=== PATIENT | male | born 1940 | race Caucasian/White ===

== ENCOUNTER → 2023-05-06 11:37 | Outpatient (REF) | payer MEDICARE, SELFPAY ==
[2023-05-06 12:28] LABS: % Basophils 0.6 % (0-2); % Eosinophils 3.5 % (0-6); % Immature Granulocytes 0.6 % (0-0.5); % Lymphocytes 19.7 % (20.5-51.1); % Monocytes 8.4 % (1.7-9.3); % Neutrophils 67.2 % (42.2-75.2); Absolute Basophils 0.1 10^3/uL (0-0.2); Absolute Eosinophils 0.4 10^3/uL (0-0.7); Absolute Immature Granulocytes 0.1 10^3/uL (0-0.05); Absolute Lymphocytes 2.1 10^3/uL (1.2-3.4); Absolute Monocytes 0.9 10^3/uL (0.1-0.6); Hematocrit 40.3 % (39.0-52.0); Hemoglobin 13.6 g/dL (13.0-18.0); Mean Corp Hgb Conc. 33.7 g/dL (33.0-37.0); Mean Corpuscular Hgb 30.7 pg (27.0-31.0); Mean Platelet Volume 10.4 fL (7.4-10.4); Nucleated Red Blood Cells % 0 % (-); Platelet Count 209 10^3/uL (130-400); Red Blood Cell Count 4.43 10^6/uL (4.70-6.10); Red Cell Dist. Width 14.1 % (11.5-14.5); White Blood Cell Count 10.4 10^3/uL (4.8-10.8)
[2023-05-06 13:02] LABS: ALT (SGPT) 68 U/L (0-50); AST (SGOT) 52 U/L (17-59); Albumin 3.6 g/dl (3.5-5.0); Alkaline Phosphatase 60 U/L (38-126); Blood Urea Nitrogen 15 mg/dl (9-20); Carbon Dioxide 27 mmol/L (22-30); Chloride 103 mmol/L (98-107); Glucose 88 mg/dl (70-99); HDL Cholesterol 39 mg/dl; LDL Cholesterol, Calculated 61 mg/dl; Sodium 140 mmol/L (135-145); Total Bilirubin 0.8 mg/dl (0.2-1.3); Total Cholesterol 112 mg/dl (50-199); Total Protein 6.5 g/dl (6.3-8.2); Triglyceride 62 mg/dl (10-149); Very Low Density Lipoprotein 12 mg/dl (0-30); eGFR > 60.00
[2023-05-06 13:23] LABS: TSH Reflex To Free T4 2.96 uIU/ml (0.47-4.68)
[2023-05-06 14:17] LABS: Glycohemoglobin (HgbA1c) 6.5 % (4.0-5.6)
== END ==
LOC: OLABP 11:37
PROVIDERS: ATTENDING PHYSICIAN Internal Medicine
DX: F03.90 Unspecified dementia, unspecified severity, without behavioral disturbance, psychotic disturbance, mood disturbance, and anxiety (principal); E11.9 Type 2 diabetes mellitus without complications
CPT/HCPCS: 36415; 80053; 80061; 83036; 84443; 85025

== ENCOUNTER → 2023-05-11 19:11 | Outpatient (REF) | payer MEDICARE, SELFPAY ==
[2023-05-11 19:50] LABS: Urine Albumin Negative (Neg - Trace); Urine Bilirubin 1+ (Negative); Urine Character Clear (Clear); Urine Color Yellow; Urine Glucose Negative (Negative); Urine Ketone Negative (Negative); Urine Leukocyte Negative (Negative); Urine Nitrite Negative (Negative); Urine Occult Blood Negative (Negative); Urine Urobilinogen 1+ (Neg - 1+)
== END ==
LOC: OLABP 19:11
PROVIDERS: ATTENDING PHYSICIAN Internal Medicine
DX: F03.90 Unspecified dementia, unspecified severity, without behavioral disturbance, psychotic disturbance, mood disturbance, and anxiety (principal); E11.9 Type 2 diabetes mellitus without complications; R50.9 Fever, unspecified
CPT/HCPCS: 81003; 87086

== ENCOUNTER → 2023-06-03 10:06 | Outpatient (REF) | payer MEDICARE, SELFPAY ==
[2023-06-03 11:40] LABS: ALT (SGPT) 50 U/L (0-50); AST (SGOT) 50 U/L (17-59); Albumin 4.3 g/dl (3.5-5.0); Alkaline Phosphatase 59 U/L (38-126); Blood Urea Nitrogen 20 mg/dl (9-20); Calcium 9.4 mg/dl (8.4-10.2); Carbon Dioxide 26 mmol/L (22-30); Chloride 100 mmol/L (98-107); Glucose 98 mg/dl (70-99); Sodium 138 mmol/L (135-145); Total Bilirubin 1.4 mg/dl (0.2-1.3); Total Protein 7.3 g/dl (6.3-8.2); eGFR > 60.00
== END ==
LOC: OLABPG 10:06
PROVIDERS: ATTENDING PHYSICIAN Internal Medicine
DX: F03.90 Unspecified dementia, unspecified severity, without behavioral disturbance, psychotic disturbance, mood disturbance, and anxiety (principal); E11.9 Type 2 diabetes mellitus without complications
CPT/HCPCS: 36415; 80053

== ENCOUNTER → 2023-08-12 10:30 | Outpatient (REF) | payer MEDICARE, SELFPAY ==
[2023-08-12 11:23] LABS: % Basophils 0.4 % (0-2); % Immature Granulocytes 0.6 % (0-0.5); % Lymphocytes 23.2 % (20.5-51.1); % Monocytes 8.1 % (1.7-9.3); % Neutrophils 64.7 % (42.2-75.2); Absolute Basophils 0.1 10^3/uL (0-0.2); Absolute Eosinophils 0.4 10^3/uL (0-0.7); Absolute Immature Granulocytes 0.1 10^3/uL (0-0.05); Absolute Lymphocytes 2.7 10^3/uL (1.2-3.4); Absolute Monocytes 0.9 10^3/uL (0.1-0.6); Absolute Neutrophils 7.5 10^3/uL (1.4-6.5); Hematocrit 41.4 % (39.0-52.0); Hemoglobin 13.8 g/dL (13.0-18.0); Mean Corp Hgb Conc. 33.3 g/dL (33.0-37.0); Mean Corpuscular Hgb 30.9 pg (27.0-31.0); Mean Corpuscular Volume 92.8 fL (80.0-94.0); Mean Platelet Volume 10.2 fL (7.4-10.4); Nucleated Red Blood Cells % 0 % (-); Platelet Count 181 10^3/uL (130-400); Red Blood Cell Count 4.46 10^6/uL (4.70-6.10); Red Cell Dist. Width 13.7 % (11.5-14.5); White Blood Cell Count 11.5 10^3/uL (4.8-10.8)
[2023-08-12 11:50] LABS: ALT (SGPT) 23 U/L (0-50); AST (SGOT) 31 U/L (17-59); Alkaline Phosphatase 80 U/L (38-126); Blood Urea Nitrogen 18 mg/dl (9-20); Calcium 9.4 mg/dl (8.4-10.2); Carbon Dioxide 25 mmol/L (22-30); Chloride 105 mmol/L (98-107); Glucose 87 mg/dl (70-99); Potassium 3.9 mmol/L (3.5-5.1); Sodium 141 mmol/L (135-145); Total Bilirubin 0.7 mg/dl (0.2-1.3); Total Protein 6.7 g/dl (6.3-8.2); eGFR > 60.00
== END ==
LOC: OLABPG 10:30
PROVIDERS: ATTENDING PHYSICIAN Internal Medicine
DX: F03.90 Unspecified dementia, unspecified severity, without behavioral disturbance, psychotic disturbance, mood disturbance, and anxiety (principal); F02.818 Dementia in other diseases classified elsewhere, unspecified severity, with other behavioral disturbance; R74.01 Elevation of levels of liver transaminase levels
CPT/HCPCS: 36415; 80053; 85025

== ENCOUNTER 2023-10-09 09:42 | Emergency (ER) | payer MEDICARE, SELFPAY ==
[2023-10-09 09:46] VITALS: BP 132/98
--- NOTE | 2023-10-09 09:57 | ED.GENMED ---
History of Present Illness
General
Chief Complaint: Fall
Source: patient
Time Seen by Provider: 10/09/23 09:46
History of Present Illness
History of Present Illness:
83-year-old male presents to the emergency room from [facility] after being found on the ground after an unwitnessed fall. Patient initially complained of right knee pain. Now he offers no complaints. Patient does not take any anticoagulants.
Past History
Past History
ED Past Medical History: CAD, GERD, Hypercholesterolemia and Other (Psoriasis, PCVPolycythemia, diabetes)
ED Past Surgical History: Cardiac (Stent)
Social History
Tobacco: Former smoker
Alcohol: None
Drug: None
Personal:
Living: with family
Employment: Retired
Family History
Family History: Other (NA)
Phy Exam
Physical Exam
Physical Exam:
General: Awake, Alert, Oriented X3. No acute distress.
Vitals: unremarkable
Head: No abrasions, contusions or areas to suggest head trauma
Eyes: Pupils equal, EOMI
Throat: Airway intact, no exudates
Neck: Trachea midline
Lungs: Clear and equal b/l
Heart: Regular rate, no murmurs
Abd: Soft, Nontender, No pulsatile mass
Neuro: Cranial nerves intact, muscle strength equal bilaterally
Skin: Warm, dry, no rash
Extremities: pulses equal b/l, no edema. Abrasion right knee. Range of motion appears intact. No significant tenderness to palpation
Course
Orders/Labs/Results
Orders:
Orders
10/09/23 09:54
Knee, Right 4 or More Views [CR Knee- Right 4 Or More View*] Urgent
Comment:
Reason For Exam: pain after a fall
10/09/23 10:04
Shoulder, Right, Trauma [CR Shoulder, Trauma - Right] Urgent
Comment:
Reason For Exam: pain after a fall
Vital Signs
Initial and Last Documented VS:
Initial Vital Signs
Temp Pulse Resp BP Pulse Ox
98.2 F 97 20 132/98 98
10/09/23 09:46 10/09/23 09:46 10/09/23 09:46 10/09/23 09:46 10/09/23 09:46
Last Documented Vital Signs
Temp Pulse Resp BP Pulse Ox
98.2 F 92 16 108/88 99
10/09/23 09:46 10/09/23 12:00 10/09/23 12:00 10/09/23 12:00 10/09/23 12:00
MDM/Problems Addressed
Differential Diagnosis Includes:
Contusion, fracture, sprain
MDM/Problems Addressed:
Patient had unwitnessed fall. There is no evidence for head injury and therefore CT scan of the head not indicated. X-ray showed no fracture of the right knee with the right shoulder. Patient appears to be comfortable and at his baseline mental
status. Stable for discharge back to the facility
*Radiology
Radiology exam reviewed: preliminary read by ED provider (Reviewed patient's shoulder and knee x-rays and see no acute fracture) and radiology read reviewed
*Pulse Oximetry
Patient hypoxic: no
*Critical Care Note
Total Time (30-74mins, 75-104mins- exclusive of procedures): Not Applicable
Data Reviewed
Further Testing Considered But Not Given:
Considered head CT but there is no evidence of trauma to his head at all. Therefore do not think the cost of radiation exposure is justified.
Patient Management
Social determinants of health affecting care: Living situation
ED Attending Note
-
Portions of this chart may have been created with voice recognition software.� Occasional wrong word or��sound alike� substitutions may have occurred due to the inherent limitations of voice recognition software.
Discharge Plan
Departure
Patient Disposition: [facility]
Date of Disposition: 10/09/23
Time of Disposition: 10:44
Condition: Fair
Discharge Problem:
Contusion of knee, Contusion of shoulder, right
Instructions: Contusion (DC)
Prescriptions:
No Action
rosuvastatin 5 MG tablet
5 mg PO HS
metformin 500 MG tablet
500 mg PO BID@0800,1700
acetaminophen 325 mg Tablet
650 mg PO Q6H PRN (Reason: mild pain, fever, headache)
omeprazole 40 mg Capsule,Delayed Release(Dr/Ec)
40 mg PO DAILY
betamethasone dipropionate 0.05 % cream
1 applic TOPICAL DAILY
aspirin 81 mg Tablet,Chewable
81 mg PO DAILY
risperidone [Risperdal] 1 mg Tablet
1 mg PO HS
Referrals:
[facility] [Family Provider] -
Interventions
Interventions:
*Risk Screen - Suicide Last Done: 10/09/23 09:46
*General Assessment Last Done: 10/09/23 09:46
*Neglect/Abuse Screening Last Done: 10/09/23 09:46
*Nursing Disposition Last Done: 10/09/23 12:38
ED-Musculoskeletal Assessment Last Done: 10/09/23 10:15
ED- Neurological Assessment Last Done: 10/09/23 10:15
ED-Skin Assessment Last Done: 10/09/23 10:15
Discharge Date and Time
Discharge Date/Time: 10/09/23 12:39
Print Language: CITIZ[place]
[2023-10-09 10:00] VITALS: BP 127/65
[2023-10-09 11:00] VITALS: BP 128/86
[2023-10-09 12:00] VITALS: BP 108/88
== END 2023-10-09 12:39 ==
LOC: EMR 09:42
PROVIDERS: EMERGENCY PHYSICIAN Emergency Medicine
DX: S40.011A Contusion of right shoulder, initial encounter (principal); S80.01XA Contusion of right knee, initial encounter; W19.XXXA Unspecified fall, initial encounter; Y92.121 Bathroom in nursing home as the place of occurrence of the external cause
CPT/HCPCS: 99284; 73030; 73564

== ENCOUNTER → 2024-03-23 09:25 | Outpatient (REF) | payer MEDICARE, SELFPAY ==
[2024-03-23 11:14] LABS: % Basophils 0.7 % (0-2); % Eosinophils 2.9 % (0-6); % Immature Granulocytes 0.4 % (0-0.5); % Lymphocytes 21.6 % (20.5-51.1); % Monocytes 8.1 % (1.7-9.3); % Neutrophils 66.3 % (42.2-75.2); Absolute Basophils 0.1 10^3/uL (0-0.2); Absolute Eosinophils 0.3 10^3/uL (0-0.7); Absolute Lymphocytes 2.1 10^3/uL (1.2-3.4); Absolute Monocytes 0.8 10^3/uL (0.1-0.6); Absolute Neutrophils 6.5 10^3/uL (1.4-6.5); Hematocrit 42.4 % (39.0-52.0); Hemoglobin 13.9 g/dL (13.0-18.0); Mean Corp Hgb Conc. 32.8 g/dL (33.0-37.0); Mean Corpuscular Hgb 31.2 pg (27.0-31.0); Mean Corpuscular Volume 95.3 fL (80.0-94.0); Nucleated Red Blood Cells % 0 % (-); Platelet Count 208 10^3/uL (130-400); Red Blood Cell Count 4.45 10^6/uL (4.70-6.10); Red Cell Dist. Width 13.4 % (11.5-14.5); White Blood Cell Count 9.7 10^3/uL (4.8-10.8)
[2024-03-23 12:16] LABS: ALT (SGPT) 14 U/L (0-50); AST (SGOT) 25 U/L (17-59); Albumin 4.1 g/dl (3.5-5.0); Alkaline Phosphatase 60 U/L (38-126); Blood Urea Nitrogen 19 mg/dl (9-20); Calcium 9.1 mg/dl (8.4-10.2); Carbon Dioxide 26 mmol/L (22-30); Chloride 102 mmol/L (98-107); Glucose 93 mg/dl (70-99); Potassium 4.1 mmol/L (3.5-5.1); Sodium 136 mmol/L (135-145); Total Bilirubin 0.6 mg/dl (0.2-1.3); Total Protein 6.8 g/dl (6.3-8.2); eGFR > 60.00
== END ==
LOC: OLABPG 09:25
PROVIDERS: ATTENDING PHYSICIAN Nurse Practitioner Acute Care
DX: F02.80 Dementia in other diseases classified elsewhere, unspecified severity, without behavioral disturbance, psychotic disturbance, mood disturbance, and anxiety (principal)
CPT/HCPCS: 36415; 80053; 85025

== ENCOUNTER 2024-08-12 21:26 | Emergency (ER) | payer MEDICARE, SELFPAY ==
[2024-08-12 21:30] VITALS: BP 115/56; BMI 25.0
[2024-08-12 22:00] VITALS: BP 131/70
[2024-08-12 23:00] VITALS: BP 123/60
--- NOTE | 2024-08-13 19:06 | ED.SKININJ ---
HPI-Injury
General
Chief Complaint: Head Injury
Source: patient and family (son)
Exam Limitations: none
Time Seen by Provider: 08/12/24 21:39
Nursing documentation reviewed up to this point in time: agreed with
History of Present Illness-Injury
Is this injury a work related problem?: No
Is pt an associate of [facility]/[place]?: No
Initial Injury comments:
Unwitnessed fall at [place]. According to staff, he walked to the nurses station and they noticed bleeding from left side of head. Sent to ED for eval. History of dementia. Son is at bedside. Patient is able to move all extremities without
dfficulty. Able to bear weight BLE. Laceration to left parietal scalp. No other injuries noted.
Past History
Past History
ED Past Medical History: CAD, GERD, Hypercholesterolemia and Other (Psoriasis, PCVPolycythemia, diabetes)
ED Past Surgical History: Cardiac (Stent)
Social History
Tobacco: Former smoker
Alcohol: None
Drug: None
Personal:
Living: with family
Employment: Retired
Family History
Family History: Other (NA)
Review of Systems
Review of Systems
Allergies reviewed?: Yes
All Other Systems: ROS reviewed and negative except as documented in HPI and ROS
Constitutional: Reports no symptoms
EENT: Reports no symptoms
Respiratory: Reports no symptoms
Cardiac: Reports no symptoms
ABD/GI: Reports no symptoms
: Reports no symptoms
Musculoskeletal: Reports no symptoms
Skin: Reports other (laceration to left parietal scalp)
Neurological: Reports no symptoms
Psychiatric: Reports no symptoms
Skin Exam
Laceration
Left Parietal:
Length in cm: 2
Orientation: horizontal
Type of Laceration: simple
Any active bleeding?: no active bleeding
Normal distal neurovascular exam: Yes
Range of motion: full
Phy Exam
General Physical Exam
General Presentation: well appearing and no apparent distress
General age: appears stated age
General Skin: warm and dry
General Habitus: normal
General Mental: alert
Cardiovascular Exam
Cardiovascular Exam: regular rate/rhythm and no edema
Pulmonary Exam
Pulmonary Exam: no respiratory distress and chest non tender
Gastrointestinal Exam
Gastrointestinal Exam: non tender, soft, no organomegaly, no pulsatile mass, non distended and no cva tenderness
Neurological Exam
Neurological Exam: alert, CN II-XII intact, no motor deficits, no sensory deficits, speech normal and confused (baseline)
Musculoskeletal Exam
Musculoskeletal Exam: full ROM and neuro vasc intact
Skin Exam
Skin Exam: normal color, warm/dry and no rash
Psychiatric Exam
Psychiatric Exam: normal mood/affect
Course
Orders/Labs/Results
Orders:
Orders
08/12/24 22:08
CT Head W/o Iv Contrast Urgent
Comment:
Reason For Exam: fall
Vital Signs
Initial and Last Documented VS:
Initial Vital Signs
Temp Pulse Resp BP Pulse Ox
97.9 F 69 18 115/56 96
08/12/24 21:30 08/12/24 21:30 08/12/24 21:30 08/12/24 21:30 08/12/24 21:30
Last Documented Vital Signs
Temp Pulse Resp BP Pulse Ox
97.9 F 69 18 123/60 95
08/12/24 21:30 08/12/24 21:30 08/12/24 21:30 08/12/24 23:00 08/12/24 23:00
Procedures
Laceration Closure
Left Parietal:
Status of Wound: clean
Description of Wound Edges: sharp
Preparation: cleaned with saline
Anesthesia: 1% Lidocaine
Revision/Debridement: routine- no revision
Wound exploration: explored to base- no FB
Type of Closure: single layer closure
Skin Closure Material: 4-0 prolene
*Radiology
Radiology exam reviewed: radiology read reviewed
*Pulse Oximetry
Patient hypoxic: no
*Critical Care Note
Total Time (30-74mins, 75-104mins- exclusive of procedures): Not Applicable
ED Attending Note
-
Portions of this chart may have been created with voice recognition software.� Occasional wrong word or��sound alike� substitutions may have occurred due to the inherent limitations of voice recognition software.
Discharge Plan
Departure
Patient Disposition: Home (Routine Discharge)
Date of Disposition: 08/13/24
Time of Disposition: 00:04
Patient with high blood pressure during this ER visit?: No
Condition: Good
Covid-19: Not Applicable
Discharge Problem:
Head injury, Laceration of scalp
Instructions: Head Injury in Adults (DC), Laceration Repair With Stitches (DC)
Prescriptions:
No Action
rosuvastatin 5 MG tablet
5 mg PO HS
metformin 500 MG tablet
500 mg PO BID@0800,1700
acetaminophen 325 mg Tablet
650 mg PO Q6H PRN (Reason: mild pain, fever, headache)
omeprazole 40 mg Capsule,Delayed Release(Dr/Ec)
40 mg PO DAILY
betamethasone dipropionate 0.05 % cream
1 applic TOPICAL DAILY
aspirin 81 mg Tablet,Chewable
81 mg PO DAILY
risperidone [Risperdal] 1 mg Tablet
1 mg PO HS
Referrals:
Adebayo Son Sr., MD [Family Provider] - (Sutures can be removed in 7-10 days)
Interventions
Interventions:
*Risk Screen - Suicide Last Done: 08/12/24 21:30
*General Assessment Last Done: 08/12/24 21:30
*Neglect/Abuse Screening Last Done: 08/12/24 21:30
*ED- Fall Risk Assessment Last Done: 08/12/24 21:30
*ED COVID-19 Vaccine History Last Done: 08/12/24 21:30
*Nursing Disposition Last Done: 08/13/24 00:12
ED- Neurological Assessment Last Done: 08/12/24 22:08
ED-Skin Assessment Last Done: 08/12/24 22:08
Discharge Date and Time
Discharge Date/Time: 08/13/24 00:45
Print Language: [place]EN[place]
== END 2024-08-13 00:45 | disposition home or self-care (01) ==
LOC: EMR 21:26
PROVIDERS: EMERGENCY PHYSICIAN Student in an Organized Health Care Education/Training Program; FAMILY PHYSICIAN Family Medicine
DX: S01.01XA Laceration without foreign body of scalp, initial encounter (principal); S09.90XA Unspecified injury of head, initial encounter; W19.XXXA Unspecified fall, initial encounter; I25.10 Atherosclerotic heart disease of native coronary artery without angina pectoris; E78.00 Pure hypercholesterolemia, unspecified; K21.9 Gastro-esophageal reflux disease without esophagitis; L40.9 Psoriasis, unspecified; G30.9 Alzheimer's disease, unspecified; F02.80 Dementia in other diseases classified elsewhere, unspecified severity, without behavioral disturbance, psychotic disturbance, mood disturbance, and anxiety; E11.40 Type 2 diabetes mellitus with diabetic neuropathy, unspecified; I10 Essential (primary) hypertension; D75.1 Secondary polycythemia; F41.9 Anxiety disorder, unspecified; M19.90 Unspecified osteoarthritis, unspecified site; Z95.5 Presence of coronary angioplasty implant and graft; Z85.828 Personal history of other malignant neoplasm of skin; Z87.891 Personal history of nicotine dependence
CPT/HCPCS: 99284; 12001; 70450

== ENCOUNTER → 2024-08-24 10:52 | Outpatient (REF) | payer MEDICARE, SELFPAY ==
[2024-08-24 11:25] LABS: Hematocrit 37.1 % (39.0-52.0); Hemoglobin 12.4 g/dL (13.0-18.0); Mean Corp Hgb Conc. 33.4 g/dL (33.0-37.0); Mean Corpuscular Hgb 30.8 pg (27.0-31.0); Mean Corpuscular Volume 92.1 fL (80.0-94.0); Mean Platelet Volume 10.5 fL (7.4-10.4); Platelet Count 215 10^3/uL (130-400); Red Blood Cell Count 4.03 10^6/uL (4.70-6.10); Red Cell Dist. Width 13.1 % (11.5-14.5); White Blood Cell Count 21.4 10^3/uL (4.8-10.8)
[2024-08-24 11:28] LABS: ALT (SGPT) 60 U/L (0-50); AST (SGOT) 63 U/L (17-59); Albumin 3.4 g/dl (3.5-5.0); Alkaline Phosphatase 115 U/L (38-126); Blood Urea Nitrogen 17 mg/dl (9-20); Calcium 8.6 mg/dl (8.4-10.2); Carbon Dioxide 22 mmol/L (22-30); Chloride 109 mmol/L (98-107); Glucose 136 mg/dl (70-99); Potassium 4.2 mmol/L (3.5-5.1); Sodium 142 mmol/L (135-145); Total Bilirubin 1.1 mg/dl (0.2-1.3); Total Protein 6.3 g/dl (6.3-8.2); eGFR > 60.00
== END ==
LOC: OLABPG 10:52
PROVIDERS: ATTENDING PHYSICIAN Internal Medicine; FAMILY PHYSICIAN Nurse Practitioner Gerontology
DX: R50.9 Fever, unspecified (principal); R05.9 Cough, unspecified; R29.6 Repeated falls
CPT/HCPCS: 36415; 80053; 85027

== ENCOUNTER → 2024-11-23 11:42 | Outpatient (REF) | payer MEDICARE, SELFPAY ==
[2024-11-23 13:46] LABS: ALT (SGPT) 12 U/L (0-50); AST (SGOT) 20 U/L (17-59); Albumin 4.8 g/dl (3.5-5.0); Alkaline Phosphatase 68 U/L (38-126); Blood Urea Nitrogen 18 mg/dl (9-20); Calcium 9.9 mg/dl (8.4-10.2); Carbon Dioxide 29 mmol/L (22-30); Chloride 105 mmol/L (98-107); Glucose 99 mg/dl (70-99); Potassium 4.2 mmol/L (3.5-5.1); Sodium 142 mmol/L (135-145); Total Protein 8.0 g/dl (6.3-8.2); eGFR > 60.00
[2024-11-23 14:11] LABS: Glycohemoglobin (HgbA1c) 6.1 % (4.0-5.6)
== END ==
LOC: OLABPG 11:42
PROVIDERS: ATTENDING PHYSICIAN Nurse Practitioner Gerontology
DX: I10 Essential (primary) hypertension (principal); E11.65 Type 2 diabetes mellitus with hyperglycemia; Z13.29 Encounter for screening for other suspected endocrine disorder; R79.89 Other specified abnormal findings of blood chemistry; F03.90 Unspecified dementia, unspecified severity, without behavioral disturbance, psychotic disturbance, mood disturbance, and anxiety
CPT/HCPCS: 36415; 80053; 83036; 83880; 84443

== ENCOUNTER → 2024-12-14 11:09 | Outpatient (REF) | payer MEDICARE, SELFPAY ==
[2024-12-14 12:08] LABS: Hematocrit 43.4 % (39.0-52.0); Hemoglobin 14.2 g/dL (13.0-18.0); Mean Corp Hgb Conc. 32.7 g/dL (33.0-37.0); Mean Corpuscular Volume 93.7 fL (80.0-94.0); Nucleated Red Blood Cells % 0 % (-); Platelet Count 195 10^3/uL (130-400); Red Cell Dist. Width 14.0 % (11.5-14.5)
[2024-12-14 12:14] LABS: Blood Urea Nitrogen 21 mg/dl (9-20); Calcium 9.0 mg/dl (8.4-10.2); Carbon Dioxide 30 mmol/L (22-30); Chloride 105 mmol/L (98-107); Glucose 84 mg/dl (70-99); Potassium 4.4 mmol/L (3.5-5.1); Sodium 141 mmol/L (135-145); eGFR > 60.00
== END ==
LOC: OLABPG 11:09
PROVIDERS: ATTENDING PHYSICIAN Internal Medicine
DX: F03.90 Unspecified dementia, unspecified severity, without behavioral disturbance, psychotic disturbance, mood disturbance, and anxiety (principal)
CPT/HCPCS: 36415; 80048; 85025